=== PATIENT | female | born 1990 | race African-American/Black ===

== ENCOUNTER 2017-03-25 21:20 | Emergency (ER) | payer SELFPAY ==
[2017-03-25 20:05] LABS: URINE SOURCE CLEAN CATCH
[2017-03-25 20:10] LABS: URINE APPEARANCE CLEAR; URINE BILIRUBIN NEG (NEG); URINE BLOOD 3+ (NEG); URINE COLOR YELLOW; URINE GLUCOSE NEG (NEG); URINE KETONE NEG (NEG); URINE LEUKOCYTE ESTERASE NEG (NEG); URINE NITRATE NEG (NEG); URINE PROTEIN NEG (NEG); URINE SPECIFIC GRAVITY 1.021 (1.003-1.035)
[2017-03-25 20:13] LABS: URINE BACTERIA AUWI NEG (NEGATIVE); URINE SQUAMOUS EPITHELIAL CELL OCC /[HPF]
[2017-03-25 20:17] LABS: CULTURE INDICATED? NO
[2017-03-29 23:30] LABS: CHLAMYDIA TRACH Not Detected (Not Detected); N GONOR Not Detected (Not Detected)
== END 2017-03-25 22:01 | disposition home or self-care (01) ==
LOC: CFTX 21:20
PROVIDERS: Nurse Practitioner Family
DX: N93.8 Other specified abnormal uterine and vaginal bleeding (principal); D25.9 Leiomyoma of uterus, unspecified
CPT/HCPCS: 81003; 84703; 87491; 87591; 87808; 87905; 99284